=== PATIENT | male | born 1950 | race Caucasian/White ===

== ENCOUNTER → 2020-11-14 | Outpatient (CLI) | payer MEDICARE ==
--- NOTE | 2021-01-17 04:08 | ECWPNPC ---
PATIENT NAME: GABRIEL TORRES : 1950 GENDER: MALE VISIT DATE: 11/14/2020 DISCHARGE DATE: 11/14/20 0000 VISIT LOCKED DATE TIME: PHYSICIAN: ANIYA SAHU RESOURCE: ANIYA SAHU REASON FOR APPOINTMENT 1. MARISOL PERDUE VIRTUAL VISIT HISTORY OF PRESENT ILLNESS GENERAL: 70-YEAR-OLD MALE IN FOR A [facility] VISIT. HE RATES HIS PAIN CURRENTLY AT A 7 OUT OF 10 AND DESCRIBES IT ACHING, BURNING, CONTINUOUS, SHARP, STABBING, THROBBING, SORE, AND SHOOTING. PATIENT IS CURRENTLY TAKING HYDROCODONE 10/325 MG 5 TABS DAILY NEEDED FOR PAIN. PATIENT STATES SHE HAS BEEN ON THIS MEDICATION FOR SEVERAL YEARS TO HELP TREAT HIS LOW BACK PAIN. - - - - - - - -. FALL RISK SCREENING: SCREENING : NO FALLS REPORTED IN THE LAST YEAR. PAIN SCREENING: PATIENT HAS A COMPLAINT OF ACUTE OR CHRONIC PAIN :YES LOCATION OF PAIN:LOW BACK, LEG(S) LEFT LEG FROM HIP TO KNEE INTENSITY OF PAIN (SCALE OF 1 TO 10):7 WHAT DOES YOUR PAIN FEEL LIKE:ACHING, BURNING, CONTINOUS, SHARP, STABBING, THROBBING, SORE, SHOOTING DURATION:CONTINOUS, CONSTANT, AWAKENS FROM SLEEP SOMETIMES WAKES HIM AT NIGHT PAIN IS INCREASED BY:ACTIVITIES, PROLONGED STANDING PAIN IS DECREASED BY:USE OF PAIN MEDICATIONS, OTHERS HEAT FOR A SHORT PERIOD OF TIME TREATMENT/MEDICATIONS USED TO MANAGE PAIN:OTC PAIN RELIEVERS, NSAIDS, PHYSICAL THERAPY, NONE TENS UNIT NURSING NOTE: - - - - - - - -. PAIN CENTER INTAKE QUESTIONS: DO YOU HAVE A HISTORY OF MRSA? :NO DO YOU TAKE A BLOOD THINNERS? :NO DO YOU HAVE ANY BLEEDING DISORDERS? :NO ANY NEW NUMBNESS OR WEAKNESS IN YOUR LEGS OR ARMS? :NO ANY PACEMAKER,DEFIBRILLATOR, OR DORSAL COLUMN STIMULATOR? :NO DO YOU HAVE ANY RASHES OR OPEN SORES? :NO ARE YOU ALLERGIC TO IV DYE? :NO ARE YOU DIABETIC? :NO ANY NEW PROBLEMS WITH YOUR MEDICATIONS? :NO HAVE YOU RECEIVED A VACCINE IN THE PAST 30 DAYS? :NO DO YOU PLAN TO RECEIVE A VACCINE IN THE NEXT 21 DAYS? :NO DO YOU NEED ANY PRESCRIPTION? :NO DO YOU TAKE ANY IMMUNOSUPPRESSIVE MEDICATIONS? :NO ANY HISTORY OF SEIZURES? :NO ANY HISTORY OF CARDIAC ISSUES OR EVENTS? :NO DO YOU HAVE SLEEP APNEA? :NO ANY RECENT HEAD INJURY? :NO DO YOU HAVE ANY NEW INFECTIONS? :NO IS THERE A CHANCE YOU COULD BE ? :NO ARE YOU BREAST FEEDING? :NO WHEN DID YOU LAST EAT? : - WHEN DID YOU LAST DRINK? : - WHAT DID YOU LAST DRINK? : - NAME OF PERSON DRIVING YOU HOME? : - DO YOU HAVE ANY OTHER QUESTIONS OR CONCERNS? : - CURRENT MEDICATIONS TAKING VENTOLIN HFA 108 (90 BASE) MCG/ACT AEROSOL SOLUTION 1 PUFF NEEDED INHALATION EVERY 4 HRS TAKING BEVESPI AEROSPHERE 9-4.8 MCG/ACT AEROSOL 2 PUFFS INHALATION TWICE A DAY TAKING MAY USE AERESOL NEBLIZER INHALED EVERY 6 HOURS TAKING MECLIZINE HCL 25 MG TABLET 1 TABL ORALLY Q 8 H NEEDED TAKING CLARITIN 10 MG TABLET 1 TABLET ORALLY ONCE A DAY TAKING VENLAFAXINE HCL 75 MG TABLET 1 TABLET WITH FOOD ORALLY ONCE A DAY TAKING HYDROCHLOROTHIAZIDE 25 MG TABLET 1 TABLET IN THE MORNING ORALLY ONCE A DAY TAKING IPRATROPIUM-ALBUTEROL 0.5-2.5 (3) MG/3ML SOLUTION 3 ML NEEDED INHALATION EVERY 6 HRS TAKING HYDROCODONE-ACETAMINOPHEN 10-325 MG TABLET 1 TABLET NEEDED ORALLY EVERY 6 HRS MDD 5 TAKING MUCINEX 600 MG TABLET EXTENDED RELEASE 12 HOUR 1 TABLET NEEDED ORALLY EVERY 12 HRS TAKING MULTIVITAMIN MEN 50+ - TABLET 1 TAB ORALLY DAILY TAKING THEOPHYLLINE ER 600 MG TABLET EXTENDED RELEASE 24 HOUR 1 TABLET ORALLY ONCE A DAY TAKING LORATADINE 10 MG TABLET 1 TABLET ORALLY ONCE A DAY TAKING IRBESARTAN 300 MG TABLET 1 TABLET ORALLY ONCE A DAY NOT-TAKING AZELASTINE HCL 137 MCG/SPRAY SOLUTION 1 PUFF IN EACH NOSTRIL NASALLY TWICE A DAY DISCONTINUED MAY USE - - DISCONTINUED MAY USE - - DISCONTINUED MAY USE DISCONTINUED MAY USE MEDICATION LIST REVIEWED AND RECONCILED WITH THE PATIENT PAST MEDICAL HISTORY ACUTE EXACERBATION OF COPD COPD HEPATITIS C HYPERHIDROSIIS EKG ABNORMALTY DEPRESSION CHRONIC LOW BACK PAIN CORNS AND CALLOSITIES HYPERTENSION ACUTE URI ALLERGIES SEASONAL: SNEEZING,RUNNY EYES - ALLERGY SURGICAL HISTORY NO SURGICAL HISTORY DOCUMENTED. FAMILY HISTORY FATHER: 70 YRS, COPD MOTHER: ALIVE 97 YRS 1 SON(S) - HEALTHY. SOCIAL HISTORY GENERAL: TOBACCO USE ARE YOU A:FORMER SMOKER HOW LONG HAS IT BEEN SINCE YOU LAST SMOKED?5-10 YEARS LATEX QUESTIONNAIRE LATEX ALLERGY : HAVE YOU EVER DEVELOPED ANY TYPE OF REACTION AFTER HANDLING LATEX PRODUCTS SUCH RUBBER GLOVES, CONDOMS, DIAPHRAGMS, BALLOONS, SOCKS, OR UNDERWEAR?NO LATEX ALLERGY : HAVE YOU EVER DEVELOPED ANY TYPE OF REACTION DURING OR AFTER DENTAL APPOINTMENT, VAGINAL/RECTAL EXAMINATION, SURGICAL PROCEDURE, OR ANY OTHER EXPOSURE?NO LATEX RISK : HAVE YOU EVER HAD ANY DIFFICULTY BREATHING OR HIVES AFTER EATING OR HANDLING ANY FRUITS, OR VEGETABLES; SUCH KIWI, BANANAS, STONE FRUITS, OR CHESTNUTSNO LATEX RISK : DO YOU HAVE A PREVIOUS PERSONAL HISTORY OF MORE THAN NINE SURGERIES, SPINA BIFIDA, OR REPEATED CATHERIZATIONS? NO LATEX RISK : ARE YOU FREQUENTLY EXPOSED TO LATEX PRODUCTS IN YOUR OCCUPATION?NO DATE ASKED : 11/14/2020 ALCOHOL SCREENING DID YOU HAVE A DRINK CONTAINING ALCOHOL IN THE PAST YEAR?NO POINTS0 INTERPRETATIONNEGATIVE RECREATIONAL DRUG USE DRUG USE?NO LANGUAGE LANGUAGES SPOKEN:[place] EDUCATION LEVEL OF EDUCATION:HIGH SCHOOL LEARNING BARRIERS / SPECIAL NEEDS BARRIERS TO LEARNING?NO HEARING IMPAIRED?NO VISION IMPAIRED?YES READING GLASSES COGNITIVELY IMPAIRED?NO READINESS TO LEARN?YES LEARNING PREFERENCES?YES :DEMONSTRATION/VERBAL INSTRUCTION LEARNING CAPABILITIES PRESENT?YES EMOTIONAL BARRIERS?NO SPECIAL DEVICES?NO CAR PACKER NEEDED?NO DOMESTIC VIOLENCE DO YOU FEEL SAFE IN YOUR ENVIRONMENT?YES - HAS THE PATIENT BEEN EDUCATED REGARDING HIS/HER PLAN OF CARE?YES HAS THE PATIENT BEEN EDUCATED REGARDING PAIN, THE RISK FOR PAIN, THE IMPORTANCE OF EFFECTIVE PAIN MANAGEMENT, AND THE PAIN ASSESSMENT PROCESS?YES ADVANCE DIRECTIVE ADVANCE DIRECTIVE DISCUSSED WITH PATIENT:YES PT STATES HE HAS A HCP-DES [id number] HOSPITALIZATION/MAJOR DIAGNOSTIC PROCEDURE FLU/PNEUMONIA 10/2018 REVIEW OF SYSTEMS CONSTITUTIONAL: ANY RECENT FEVER NO . CHILLS NO . WEIGHT CHANGE OF UNKNOWN REASONS NO . GASTROENTEROLOGY: NEW UNEXPLAINABLE CHANGES IN BOWEL CONTROL NO . CONSTIPATION NO . GENITOURINARY: ANY NEW CHANGE IN BLADDER CONTROL? NO . NEUROLOGY: NEW ONSET DIZZINESS OR NEUROLOGICAL CHANGES NOT MENTIONED NO . NEW NUMBNESS OR PAIN PATTERNS NOT MENTIONED AND PERTINENT TO TODAY'S VISIT NO . CARDIOLOGY: NEW CHEST PRESSURE NO . PATIENT DENIES NO . RESPIRATORY: UNEXPLAINABLE COUGH NO . NEW SHORTNESS OF BREATH NO . VITAL SIGNS WT 230 LBS, HT 69 IN, BMI 33.96 INDEX, BP 122/83 MM HG, HR 111 /MIN, TEMP 97.4 FVITALS TAKEN BY CLINIC. EXAMINATION GENERAL EXAMINATION: GENERALNO ACUTE DISTRESS, WELL NOURISHED AND HYDRATED. PSYCHAPPROPRIATE MOOD AND AFFECT. ASSESSMENTS LOW BACK PAIN - M54.5 (PRIMARY) TREATMENT LOW BACK PAIN NOTES: 70-YEAR-OLD MALE IN FOR INITIAL [facility] CONSULT. GIVEN PRESENTING SYMPTOMS RECOMMEND PATIENT CONTINUE WITH CURRENT MEDICATION REGIMEN HAVE U TOX IS PERFORMED EVERY 6 MONTHS AND ENSURE NARCOTIC AGREEMENT IS IN PLACE. FURTHER RECOMMENDED FOLLOW-UP WITH THIS PROVIDER IN 3 MONTHS. PATIENT HAS EXPRESSED UNDERSTANDING OF AND WAS IN AGREEMENT WITH TREATMENT PLAN. GIVEN TIME TO ASK QUESTIONS AND EXPRESS CONCERNS. , ISTOP REGISTRY REVIEWED AND DEMONSTRATES COMPLLIANCE. (REF # [id number] ). DISPOSITION & COMMUNICATION FOLLOW UP 3 MONTHS (REASON: LOW BACK PAIN) ELECTRONICALLY SIGNED BY LEI BELLA ON 01/16/2021 AT 08:26 AM EST DISCLAIMER : THIS IS A VISIT SUMMARY EXTRACTED FROM THE [employer] CHART. IT IS NOT A COPY OF THE [employer] PROGRESS NOTE. DIANA
== END ==
LOC: M PAIN 15:00
PROVIDERS: ATTEND Family Medicine
DX: M54.5 Low back pain (principal); J44.9 Chronic obstructive pulmonary disease, unspecified; F32.9 Major depressive disorder, single episode, unspecified; I10 Essential (primary) hypertension; Z79.891 Long term (current) use of opiate analgesic; Z79.899 Other long term (current) drug therapy

== ENCOUNTER → 2021-02-12 | Outpatient (CLI) | payer MEDICARE ==
--- NOTE | 2021-02-14 11:52 | ECWPNPC ---
PATIENT NAME: GABRIEL TORRES : 1950 GENDER: MALE VISIT DATE: 02/12/2021 DISCHARGE DATE: 02/12/21 1111 VISIT LOCKED DATE TIME: PHYSICIAN: ANIYA SAHU RESOURCE: ANIYA SAHU REASON FOR APPOINTMENT 1. MARISOL PERDUE VIRTUAL VISIT- HISTORY OF PRESENT ILLNESS GENERAL: 70-YEAR-OLD MALE MARISOL PERDUE PATIENT IN FOR FOLLOW-UP. PERMISSION REQUESTED AND RECEIVED FROM PATIENT TO PERFORM TELEHEALTH VISIT. HE RATES HIS PAIN CURRENTLY AT A 7 OUT OF 10 AND DESCRIBES IT ACHING, BURNING, CONTINUOUS, SHARP, STABBING, AND TENDER. HE FEELS MEDICATIONS ARE HELPFUL AND DENIES MED SIDE EFFECTS AT THIS TIME. FALL RISK SCREENING: SCREENING : NO FALLS REPORTED IN THE LAST YEAR , : NO FALLS REPORTED IN THE LAST YEAR. PAIN SCREENING: PATIENT HAS A COMPLAINT OF ACUTE OR CHRONIC PAIN :YES LOCATION OF PAIN:LOW BACK INTENSITY OF PAIN (SCALE OF 1 TO 10):7 WHAT DOES YOUR PAIN FEEL LIKE:ACHING, BURNING, CONTINOUS, SHARP, STABBING, TENDER DURATION:CONTINOUS, CONSTANT PAIN IS INCREASED BY:ACTIVITIES, PROLONGED STANDING PAIN IS DECREASED BY:USE OF PAIN MEDICATIONS, SITTING, OTHERS NURSING NOTE: - - -. PAIN CENTER INTAKE QUESTIONS: DO YOU HAVE A HISTORY OF MRSA? :NO DO YOU TAKE A BLOOD THINNERS? :NO DO YOU HAVE ANY BLEEDING DISORDERS? :NO ANY NEW NUMBNESS OR WEAKNESS IN YOUR LEGS OR ARMS? :YES NUMBNESS AND WEAKNESS IN LEGS ANY PACEMAKER,DEFIBRILLATOR, OR DORSAL COLUMN STIMULATOR? :NO DO YOU HAVE ANY RASHES OR OPEN SORES? :NO ARE YOU ALLERGIC TO IV DYE? :NO ARE YOU DIABETIC? :NO ANY NEW PROBLEMS WITH YOUR MEDICATIONS? :NO HAVE YOU RECEIVED A VACCINE IN THE PAST 30 DAYS? :YES IF SO WHAT VACCINE AND WHEN? SECOND COVID VACCINATION ON 02/06/2021 DO YOU PLAN TO RECEIVE A VACCINE IN THE NEXT 21 DAYS? :NO DO YOU NEED ANY PRESCRIPTION? :NO DO YOU TAKE ANY IMMUNOSUPPRESSIVE MEDICATIONS? :NO CURRENT MEDICATIONS TAKING VENTOLIN HFA 108 (90 BASE) MCG/ACT AEROSOL SOLUTION 1 PUFF NEEDED INHALATION EVERY 4 HRS TAKING BEVESPI AEROSPHERE 9-4.8 MCG/ACT AEROSOL 2 PUFFS INHALATION TWICE A DAY TAKING MAY USE AERESOL NEBLIZER INHALED EVERY 6 HOURS TAKING MECLIZINE HCL 25 MG TABLET 1 TABL ORALLY Q 8 H NEEDED TAKING CLARITIN 10 MG TABLET 1 TABLET ORALLY ONCE A DAY TAKING VENLAFAXINE HCL 75 MG TABLET 1 TABLET WITH FOOD ORALLY ONCE A DAY TAKING HYDROCHLOROTHIAZIDE 25 MG TABLET 1 TABLET IN THE MORNING ORALLY ONCE A DAY TAKING IPRATROPIUM-ALBUTEROL 0.5-2.5 (3) MG/3ML SOLUTION 3 ML NEEDED INHALATION EVERY 6 HRS TAKING HYDROCODONE-ACETAMINOPHEN 10-325 MG TABLET 1 TABLET NEEDED ORALLY EVERY 6 HRS MDD 5 TAKING MUCINEX 600 MG TABLET EXTENDED RELEASE 12 HOUR 1 TABLET NEEDED ORALLY EVERY 12 HRS TAKING MULTIVITAMIN MEN 50+ - TABLET 1 TAB ORALLY DAILY TAKING THEOPHYLLINE ER 600 MG TABLET EXTENDED RELEASE 24 HOUR 1 TABLET ORALLY ONCE A DAY TAKING LORATADINE 10 MG TABLET 1 TABLET ORALLY ONCE A DAY TAKING IRBESARTAN 300 MG TABLET 1 TABLET ORALLY ONCE A DAY UNKNOWN AZELASTINE HCL 137 MCG/SPRAY SOLUTION 1 PUFF IN EACH NOSTRIL NASALLY TWICE A DAY MEDICATION LIST REVIEWED AND RECONCILED WITH THE PATIENT PAST MEDICAL HISTORY ACUTE EXACERBATION OF COPD COPD HEPATITIS C HYPERHIDROSIIS EKG ABNORMALTY DEPRESSION CHRONIC LOW BACK PAIN CORNS AND CALLOSITIES HYPERTENSION ACUTE URI ALLERGIES SEASONAL: SNEEZING,RUNNY EYES - ALLERGY SOCIAL HISTORY GENERAL: TOBACCO USE ARE YOU A:FORMER SMOKER HOW LONG HAS IT BEEN SINCE YOU LAST SMOKED?5-10 YEARS LATEX QUESTIONNAIRE LATEX ALLERGY : HAVE YOU EVER DEVELOPED ANY TYPE OF REACTION AFTER HANDLING LATEX PRODUCTS SUCH RUBBER GLOVES, CONDOMS, DIAPHRAGMS, BALLOONS, SOCKS, OR UNDERWEAR?NO LATEX ALLERGY : HAVE YOU EVER DEVELOPED ANY TYPE OF REACTION DURING OR AFTER DENTAL APPOINTMENT, VAGINAL/RECTAL EXAMINATION, SURGICAL PROCEDURE, OR ANY OTHER EXPOSURE?NO LATEX RISK : HAVE YOU EVER HAD ANY DIFFICULTY BREATHING OR HIVES AFTER EATING OR HANDLING ANY FRUITS, OR VEGETABLES; SUCH KIWI, BANANAS, STONE FRUITS, OR CHESTNUTSNO LATEX RISK : DO YOU HAVE A PREVIOUS PERSONAL HISTORY OF MORE THAN NINE SURGERIES, SPINA BIFIDA, OR REPEATED CATHERIZATIONS? NO LATEX RISK : ARE YOU FREQUENTLY EXPOSED TO LATEX PRODUCTS IN YOUR OCCUPATION?NO DATE ASKED : 02/12/2021 ALCOHOL USE: NO. ALCOHOL SCREENING DID YOU HAVE A DRINK CONTAINING ALCOHOL IN THE PAST YEAR?NO POINTS0 INTERPRETATIONNEGATIVE RECREATIONAL DRUG USE DRUG USE?NO LANGUAGE LANGUAGES SPOKEN:[place] EDUCATION LEVEL OF EDUCATION:HIGH SCHOOL LEARNING BARRIERS / SPECIAL NEEDS CHANGE FROM LAST VISIT?NO BARRIERS TO LEARNING?NO HEARING IMPAIRED?NO VISION IMPAIRED?YES READING GLASSES COGNITIVELY IMPAIRED?NO READINESS TO LEARN?YES LEARNING PREFERENCES?YES :DEMONSTRATION/VERBAL INSTRUCTION LEARNING CAPABILITIES PRESENT?YES EMOTIONAL BARRIERS?NO SPECIAL DEVICES?NO INDUSTRIAL RELATIONS ANALYST NEEDED?NO DOMESTIC VIOLENCE DO YOU FEEL SAFE IN YOUR ENVIRONMENT?YES - HAS THE PATIENT BEEN EDUCATED REGARDING HIS/HER PLAN OF CARE?YES HAS THE PATIENT BEEN EDUCATED REGARDING PAIN, THE RISK FOR PAIN, THE IMPORTANCE OF EFFECTIVE PAIN MANAGEMENT, AND THE PAIN ASSESSMENT PROCESS?YES ADVANCE DIRECTIVE ADVANCE DIRECTIVE DISCUSSED WITH PATIENT:YES PT STATES HE HAS A HCP-DES [id number] REVIEW OF SYSTEMS CONSTITUTIONAL: ANY RECENT FEVER NO . CHILLS NO . WEIGHT CHANGE OF UNKNOWN REASONS NO . GASTROENTEROLOGY: NEW UNEXPLAINABLE CHANGES IN BOWEL CONTROL NO . CONSTIPATION NO . GENITOURINARY: ANY NEW CHANGE IN BLADDER CONTROL? NO . NEUROLOGY: NEW ONSET DIZZINESS OR NEUROLOGICAL CHANGES NOT MENTIONED NO . NEW NUMBNESS OR PAIN PATTERNS NOT MENTIONED AND PERTINENT TO TODAY'S VISIT NO . CARDIOLOGY: NEW CHEST PRESSURE NO . PATIENT DENIES NO . RESPIRATORY: UNEXPLAINABLE COUGH NO . NEW SHORTNESS OF BREATH NO . VITAL SIGNS WT 230 LBS, HT 69 IN, BMI 33.96 INDEX, SAFE IN ENV? (Y/N) YES, REVIEWED BY: SWETA TO OBTAIN VITALS DUE TO TELEVISIT. MANUEL VEGA MA. EXAMINATION GENERAL EXAMINATION: GENERALNO ACUTE DISTRESS, WELL NOURISHED AND HYDRATED. PSYCHAPPROPRIATE MOOD AND AFFECT . ASSESSMENTS LOW BACK PAIN - M54.5 (PRIMARY) TREATMENT LOW BACK PAIN NOTES: 70-YEAR-OLD MALE IN FOR INITIAL [facility] CONSULT. GIVEN PRESENTING SYMPTOMS RECOMMEND PATIENT CONTINUE WITH CURRENT MEDICATION REGIMEN AND FOLLOW-UP WITH HIS PROVIDER IN 3 MONTHS. PATIENT HAS EXPRESSED UNDERSTANDING OF AND WAS IN AGREEMENT WITH TREATMENT PLAN. GIVEN TIME TO ASK QUESTIONS AND EXPRESS CONCERNS. TELEHEALTH VISIT CONDUCTED VIA ZOOM. TIME SPENT WITH PATIENT 7 MINUTES. . DISPOSITION & COMMUNICATION FOLLOW UP WITH PATIENT'S PROVIDER (REASON: LOW BACK PAIN) ELECTRONICALLY SIGNED BY LEI BELLA ON 02/13/2021 AT 10:51 AM EDT DISCLAIMER : THIS IS A VISIT SUMMARY EXTRACTED FROM THE [employer] CHART. IT IS NOT A COPY OF THE [employer] PROGRESS NOTE. DIANA
== END ==
LOC: M TMPAIN 15:00 → M PAIN 15:00
PROVIDERS: ATTEND Family Medicine
DX: M54.5 Low back pain (principal); J44.9 Chronic obstructive pulmonary disease, unspecified; F32.9 Major depressive disorder, single episode, unspecified; I10 Essential (primary) hypertension; Z87.891 Personal history of nicotine dependence; R61 Generalized hyperhidrosis; Z79.891 Long term (current) use of opiate analgesic; Z79.899 Other long term (current) drug therapy; J30.2 Other seasonal allergic rhinitis